=== PATIENT | female | born 1950 | race Caucasian/White ===

== ENCOUNTER → 2017-02-11 | Outpatient (CLI) | payer MEDICARE, OTHER ==
[~2017-02-11] MED LIST: ALPR.25 PO; ASPI1TAB69 PO; CALC1TAB87 PO; CARB100C42 PO; FLUT1SPR9 EACH NARE; GLUC1CAP14 PO; HYZA50TA2 PO; LACTCAP8 PO; S-AD400T2 PO; VITA200012 PO; VITA60003
[2017-02-11 14:55] LABS: HEMATOCRIT 37.2 % (35.0-46.0); MEAN CELL VOLUME 89.3 FL (80.0-100.0); MEAN CORPUSCULAR HEMOGLOBIN 30.3 PG (27.0-34.0); MEAN CORPUSCULAR HGB CONC 33.9 % (32.0-36.0); PLATELET COUNT 252 TH/MM3 (150-450); RED BLOOD COUNT 4.17 MIL/MM3 (4.00-5.30); RED CELL DISTRIBUTION WIDTH 13.6 % (11.6-17.2); WHITE BLOOD COUNT 6.6 TH/MM3 (4.0-11.0)
[2017-02-11 15:04] LABS: HEMO FLAGS AUTO DIFF
[2017-02-11 19:26] LABS: BASOPHILS 1 % (0-2); EOSINOPHILS 2 % (0-4); NEUTROPHIL # MANUAL DIFF 4.4 TH/MM3 (1.8-7.7); POLYS (SEG NEUTROPHILS) 67 % (16-70); WBC DIFF SAMPLE 100
[2017-02-11 19:27] LABS: PLATELET ESTIMATE SMEAR NORMAL (NORMAL); PLATELET MORPHOLOGY NORMAL (NORMAL); SCAN/DIFF FINAL DIFF MANUAL
--- NOTE | 2017-02-12 22:48 | EKG ---
Date Performed: 02/11/2017 Time Performed: 15:02:45 PTAGE: 66 years EKG: Sinus rhythm POSSIBLE LEFT ATRIAL ENLARGEMENT INCOMPLETE RIGHT BUNDLE BRANCH BLOCK BORDERLINE ECG NO PREVIOUS TRACING DOCTOR: Louie Melton Interpretating Date/Time 02/12/2017 22:46:14
== END ==
LOC: CLAB 14:35
PROVIDERS: ATTEND Surgery
DX: C50.911 Malignant neoplasm of unspecified site of right female breast (principal); I45.10 Unspecified right bundle-branch block
CPT/HCPCS: 36415; 85007; 85027; 93005

== ENCOUNTER → 2017-02-17 | Day surgery (SDC) | payer MEDICARE, OTHER ==
[~2017-02-17] MED LIST changes: +ACETAMINOPHEN 1000 MG/100 ML VIAL IV ONE; +BUPIVACAINE/EPINEPHRINE 0.5% PF 30 ML VIAL ONE; +ISOSULFAN BLUE 50 MG/5 ML VIAL SQ ONE; +LACTATED RINGER'S 1000 ML INJ 1,000 ML ONE; +LIDOCAINE 1%/EPINEPHrine 1:100,000 SOLN 20 ML VIAL ONE; +MIDAZOLAM HCL 2 MG/2 ML VIAL ONE; +ONDANSETRON HCL 4 MG/2 ML VIAL IV PUSH ONE; +PROPOFOL 200 MG/20 ML AMP IV ONE; +ceFAZolin 2 GM PREMIX 50 ML ONE
--- NOTE | 2017-02-18 16:18 | MP ---
cc: TIMOTHY LÓPEZ DATE OF SURGERY: 02/17/2017 PREOPERATIVE DIAGNOSIS: Infiltrating ductal carcinoma the right breast. POSTOPERATIVE DIAGNOSIS Infiltrating ductal carcinoma the right breast. PROCEDURE Needle-localized right breast lumpectomy with the right axillary sentinel lymph node biopsy and axillary sampling. SURGEON Carter ANESTHESIA General PROCEDURE The patient was brought to the operating room after having undergone nuclear injection in the side of the breast lesion as well as needle localization of a previous percutaneous biopsy of the right breast. After satisfactory general anesthesia was obtained the right breast and axilla were prepped and draped in the usual sterile fashion. 1% lidocaine with epinephrine was used to infiltrate the skin for local anesthesia. A transverse incision was made in the axilla between the stringer placed by the radiologist. It was carried out sharply through the subcutaneous tissue with cautery being is hemostasis. Incision was deepened into the axilla proper by incising the clavipectoral fascia. The area of greatest radioactivity was identified with the navigator probe and the area of tissue was grasped with an Allis clamp. It was dissected free bluntly with the small vessels being taken with hemoclips and the cautery. The specimen was then completely excised and the sentinel node with the highest radioactivity counts was identified and marked with a stitch. There are two other small areas that had less radioactivity and these areas were sent to permanent pathology as well. Hemostasis was strictly assured with the cautery as well as interrupted 3-0 Vicryl sutures. After hemostasis had been obtained the subcutaneous tissue was closed with interrupted 3-0 Vicryl suture and skin closed with interrupted 4-0 PDS subcuticular stitches. Attention was then turned to the breast. The guidewire had been placed deep in the axillary tail of [place] and was located more medially as far as the tip is concerned. The wire was identified within the breast and the skin anesthetized with 1% lidocaine with epinephrine. A curvilinear incision was then made medial to the end of the guidewire. Carried out sharply through the subcutaneous tissue with cautery being is hemostasis. Incision was deepened into the breast parenchyma and the guidewire was grasped as close to the skin as possible but well within the breast. The end of the wire was amputated at the level of the skin with a wirer maintenance, after which the wire, which had been grasped with a hemostat, was brought within the wound. A core tissue was dissected free from around the guidewire using cautery as well as sharp dissection. The specimen was then sent for mammography which revealed the presence of the lesion in the middle of the specimen. No other abnormalities could be palpated. Hemostasis was strictly assured after which the subcutaneous tissue and skin were closed with interrupted 4-0 PDS subcuticular stitches. Steri-Strips were applied and the patient was then awakened and taken from the operating room in satisfactory condition having tolerated procedure without problem. Estimated blood loss was less than 50 Mls, the instrument count, the sponge count and needle counts were reported as being correct times two. MD CL Mohamud/zaid /4:20 PM /4:18 PM
== END | disposition home or self-care (01) ==
LOC: ESDC 07:22
PROVIDERS: ATTEND Surgery
DX: D05.11 Intraductal carcinoma in situ of right breast (principal)
CPT/HCPCS: 00400; 01610; 19125; 38525; 38792; 88307; J0131; J0690; J2250; J2405; J3010; J7120; Q9968

== ENCOUNTER → 2017-06-23 | Outpatient (CLI) | payer MEDICARE, OTHER ==
[~2017-06-23] MED LIST changes: -ACETAMINOPHEN 1000 MG/100 ML VIAL IV ONE; -BUPIVACAINE/EPINEPHRINE 0.5% PF 30 ML VIAL ONE; -ISOSULFAN BLUE 50 MG/5 ML VIAL SQ ONE; -LACTATED RINGER'S 1000 ML INJ 1,000 ML ONE; -LIDOCAINE 1%/EPINEPHrine 1:100,000 SOLN 20 ML VIAL ONE; -MIDAZOLAM HCL 2 MG/2 ML VIAL ONE; -ONDANSETRON HCL 4 MG/2 ML VIAL IV PUSH ONE; -PROPOFOL 200 MG/20 ML AMP IV ONE; -ceFAZolin 2 GM PREMIX 50 ML ONE
[2017-06-23 10:55] LABS: AUTOMATED NEUTROPHIL # 2.8 TH/MM3 (1.8-7.7); BASOPHIL % 0.9 % (0.0-2.0); EOSINOPHIL % 1.2 % (0.0-4.0); HEMOGLOBIN 13.5 GM/DL (11.6-15.3); LYMPHOCYTE # 0.6 TH/MM3 (1.0-4.8); MEAN CELL VOLUME 92.5 FL (80.0-100.0); MEAN CORPUSCULAR HEMOGLOBIN 31.2 PG (27.0-34.0); MEAN CORPUSCULAR HGB CONC 33.7 % (32.0-36.0); MEAN PLATELET VOLUME 7.8 FL (7.0-11.0); MONOCYTE # 0.4 TH/MM3 (0-0.9); NEUT % 71.9 % (16.0-70.0); PLATELET COUNT 234 TH/MM3 (150-450); RED BLOOD COUNT 4.33 MIL/MM3 (4.00-5.30); RED CELL DISTRIBUTION WIDTH 13.9 % (11.6-17.2); WHITE BLOOD COUNT 3.9 TH/MM3 (4.0-11.0)
[2017-06-23 11:25] LABS: ALBUMIN 3.9 GM/DL (3.4-5.0); AST (GOT) 61 U/L (15-37); BICARBONATE 28.8 MEQ/L (21.0-32.0); BLOOD UREA NITROGEN 12 MG/DL (7-18); CALCIUM 9.2 MG/DL (8.5-10.1); CHLORIDE 101 MEQ/L (98-107); CREATININE 0.64 MG/DL (0.50-1.00); GLOMERULAR FILTRATION RATE 93 ML/MIN (>89); GLUCOSE,FASTING 109 MG/DL (74-99); SODIUM (NA) 136 MEQ/L (136-145)
[2017-06-23 11:26] LABS: ALT (GPT) 63 U/L (10-53)
[2017-06-23 11:29] LABS: ALKALINE PHOSPHATASE 69 U/L (45-117); TOTAL BILIRUBIN ADULT 0.7 MG/DL (0.2-1.0); TOTAL PROTEIN 7.9 GM/DL (6.4-8.2)
== END ==
LOC: CLAB 05-19 10:09
PROVIDERS: ATTEND Internal Medicine
DX: C50.411 Malignant neoplasm of upper-outer quadrant of right female breast (principal)
CPT/HCPCS: 36415; 80053; 85025